=== PATIENT | male | born 1985 | race Two or more races ===

== ENCOUNTER 2023-05-21 11:45 | Inpatient (IN) ==
--- NOTE | 2023-05-21 12:04 | DR.SOBA ---
HPI Time Seen Time Seen by Provider: 05/21/23 12:16 Primary Care Physician Primary Care Physician: [id number] Complaints Chief Complaint Doctors Comments: 37 y/o male presents for evaluation. Started with cough, congestion and fever 3 days ago. Symptoms have worsened. Having a frequent cough, nonproductive. Feeling increasing shortness of breath. Having sinus congestion, fevers, chills. No report of vomiting or diarrhea. No other ill individuals at home. Patient is a history of diabetes, over the last year, has stopped his medications past several weeks. Chief Complaint:: Pt "having difficulty breathing and breathing fast" which started this am when he woke up. Had c/c/c, fever, headache on . Pt c/o pain in bilat rib area that started this AM when he started breathing fast Self Treatment fo Chief Complaint: tylenol/motrin at home; took advil sinus this AM around 0700 COVID-19 Coronavirus risk:travel/contact w/high risk person: No Has patient experienced Coronavirus symptoms: Yes Coronavirus symptoms experienced: Fever, Coughing and Shortness of Breath Source History Provided: Patient and Significant Other Mode of Arrival Mode of Arrival: Ambulatory Timing Onset of Chief Complaint: 05/18/23 PMH PMH Past Medical History: Yes Past Medical History: Diabetes Past Surgical History: No Surgical History: No History Social History Does patient currently use any type of tobacco product: Yes Have you used tobacco products in the last 12 months: Yes Type of Tobacco Use: Cigarettes Does any household member use tobacco: No Alcohol Use: Occasionally Do you use any recreational Drugs:: No Lives With: Spouse and Family Lives Where: Home Travel Risk Coronavirus risk:travel/contact w/high risk person: No Has patient experienced Coronavirus symptoms: Yes Coronavirus symptoms experienced: Fever, Coughing and Shortness of Breath Infectious screening In the last 2 months have you had wt loss of >10#?: NO Have you had fever, night sweats or hemotysis?: No Have you traveled outside the country in the last 6 months?: No (back from [place] September 2022) Isolation: Respiratory ROS Review of Systems Constitutional: Chills, Fever and Weakness Eyes: No Symptoms Reported ENTM: Nose Congestion Respiratoy: Non-Productive Cough and Short of Breath Cardiovascular: No Symptoms Reported Gastrointestinal/Abdominal: No Symptoms Reported Genitourinary: No Symptoms Reported Neurological: No Symptoms Reported Musculoskeletal: Muscle Pain Integumentary: No Symptoms Reported Hematologic/Lymphatic: No Symptoms Reported All Other Systems: Reviewed and Negative PE Vital Signs Vitals: Vital Signs Temperature 98.7 F Pulse Rate 113 Pulse Rate 128 Pulse Rate 124 Pulse Rate 128 Pulse Rate 127 Pulse Rate 124 Pulse Rate 123 Pulse Rate 131 Respiratory Rate 18 Respiratory Rate 28 Respiratory Rate 20 Respiratory Rate 43 Respiratory Rate 44 Respiratory Rate 35 Respiratory Rate 41 Respiratory Rate 36 Respiratory Rate 38 Respiratory Rate 29 Blood Pressure 132/74 Blood Pressure 155/95 Blood Pressure 161/90 Blood Pressure 158/85 Blood Pressure 154/82 Blood Pressure 164/93 Blood Pressure 178/94 Blood Pressure 145/89 O2 Sat by Pulse Oximetry 97 O2 Sat by Pulse Oximetry 98 O2 Sat by Pulse Oximetry 99 O2 Sat by Pulse Oximetry 99 O2 Sat by Pulse Oximetry 99 O2 Sat by Pulse Oximetry 100 O2 Sat by Pulse Oximetry 99 O2 Sat by Pulse Oximetry 97 General General Appearance: Alert and In No Apparent Distress Eyes Eye exam: PERRL and EOMI ENT ENT Exam: Normal Oropharynx, Mucous Membranes Moist and TM's Normal Bilaterally Neck Neck Exam: Normal Inspection and Full ROM; negative Tenderness Respiratory Respiratory Exam: Normal Lung Sounds Bilat; negative Accessory Muscle Use or Respiratory Distress Cardiovascular Cardiovascular Exam: Regular Rate, Normal Rhythm and Normal Heart Sounds Abdominal Exam Abdominal Exam: Soft; negative Tenderness Extremities Extremities Exam: Normal Inspection; negative Edema Neurologic Neurological Exam: Alert, Oriented X3 and CN II-XII Intact; negative Motor Sensory Deficit Skin Skin Exam: Warm and Dry COURSE Treatment Treatment: 37 y/o male ill x 3 days, with worsening URI symptoms. Pt given IV fluids, w/u initiated. Patient with history of diabetes, diagnosed < 5 years. Has been off diabetic medications for the past several months. Became ill with flulike illness, earlier this week. Now having increasing weakness, increasing shortness of breath, tachypnea. Glucose 383, serum bicarb down to 7.3. ABG obtained, pH 7.09, pCO2 10, bicarb 3, pO2 87. Serum acetone moderate level. Troponin normal. Patient positive for influenza B, negative for COVID. Patient with adult onset diabetes, should not be in DKA. Discussed with the admitting physician, Dr. Miller. Feels he probably has a combination of respiratory infection, metabolic acidosis. Chest x-ray shows a density of the right lower lobe, possible air bronchograms.. Will treat for pneumonia with IV Rocephin now. Blood cultures, lactic acid obtained. Possible sepsis. Initial BP was 145/89, with elevated heart rate in the 130's, no fever. After 2 L NS, & 1 amp bicarb in 250 mls NS, HR down to 113, maintains good BP of 132/74. Will admit to Dr Miller, covering for admissions. ROR Labs Reviewed Laboratory Results Reviewed?: Yes 05/21/23 12:33 05/21/23 12:33 Laboratory: WBC 8.2 X10^3/uL (3.6-10.0) 05/21/23 12:33 RBC 5.10 X10^6/uL (4.7-6.0) 05/21/23 12:33 Hgb 16.4 g/dL (13.5-18.0) 05/21/23 12:33 Hct 48.1 % (42.0-54.0) 05/21/23 12:33 MCV 94.3 fL (80.0-100.0) 05/21/23 12:33 MCH 32.2 pg (27.0-34.0) 05/21/23 12:33 MCHC 34.1 g/dL (33.0-35.0) 05/21/23 12:33 RDW 12.6 % (11.6-16.5) 05/21/23 12:33 Plt Count 166 X10^3/uL (150.0-450.0) 05/21/23 12:33 MPV 9.2 fL (7.4-11.0) 05/21/23 12:33 Neut % (Auto) 79.7 % (42.0-75.0) H 05/21/23 12:33 Lymph % (Auto) 9.0 % (21.0-51.0) L 05/21/23 12:33 [place] % (Auto) 11.1 % (0.0-13.0) 05/21/23 12:33 Eos % (Auto) 0.0 % (0.9-2.9) L 05/21/23 12:33 Baso % (Auto) 0.2 % (0.2-1.0) 05/21/23 12:33 Neut # (Auto) 6.6 x10^3/uL (2.2-4.8) H 05/21/23 12:33 Lymph # (Auto) 0.7 X10^3/uL (1.3-2.9) L 05/21/23 12:33 [place] # (Auto) 0.9 x10^3/uL (0.3-0.8) H 05/21/23 12:33 Eos # (Auto) 0.0 x10^3/uL (0.0-0.2) 05/21/23 12:33 Baso # (Auto) 0.0 X10^3/uL (0.0-0.1) 05/21/23 12:33 Absolute Nucleated RBC 0.1 /100WBC 05/21/23 12:33 Sample Site Rrad 05/21/23 13:28 ABG pH 7.090 (7.35-7.45) L* 05/21/23 13:28 ABG pCO2 10.0 mmHg (35.0-45.0) L* 05/21/23 13:28 ABG pO2 87.0 mmHg (80.0-100.0) 05/21/23 13:28 ABG HCO3 3.0 mmol/L (22-26) L* 05/21/23 13:28 ABG O2 Saturation 92.0 % (90-100) 05/21/23 13:28 ABG Base Excess -24.5 mmol/L (-2.0-2.0) L 05/21/23 13:28 Stephan Test Pos 05/21/23 13:28 A-a Gradient 50.0 mmHg 05/21/23 13:28 FiO2 21.0 05/21/23 13:28 Blood Gas Comments Pt chris well. eb/kg 05/21/23 13:28 Sodium 126 mmol/L (136-145) L 05/21/23 12:33 Corrected Sodium 133 mmol/L (136-145) L 05/21/23 12:33 Potassium 3.8 mmol/L (3.5-5.1) 05/21/23 12:33 Chloride 91 mmol/L (98-107) L 05/21/23 12:33 Carbon Dioxide 7.3 mmol/L (21-32) L* 05/21/23 12:33 BUN 10 mg/dL (7-18) 05/21/23 12:33 Creatinine 1.31 mg/dL (0.70-1.30) H 05/21/23 12:33 Est GFR (MDRD) Af Amer > 60 (>60) 05/21/23 12:33 Est GFR (MDRD) Non-Af > 60 (>60) 05/21/23 12:33 Glucose 383 mg/dL (65-99) H 05/21/23 12:33 Lactic Acid 0.4 mmol/L (0.4-2.0) 05/21/23 15:49 Calcium 8.4 mg/dL (8.5-10.1) L 05/21/23 12:33 Corrected Calcium TNP 05/21/23 12:33 Total Bilirubin 0.60 mg/dL (0.2-1.0) 05/21/23 12:33 AST 24 Units/L (15-37) 05/21/23 12:33 ALT 16 Units/L (12-78) 05/21/23 12:33 Alkaline Phosphatase 174 Units/L (46-116) H 05/21/23 12:33 Troponin I High Sens 8.3 ng/L (4.0-60.0) 05/21/23 12:33 Total Protein 8.6 g/dL (6.4-8.2) H 05/21/23 12:33 Albumin 3.9 g/dL (3.4-5.0) 05/21/23 12:33 Globulin 4.7 g/dL (2.5-4.5) H 05/21/23 12:33 Albumin/Globulin Ratio 0.8 Ratio (1.1-2.1) L 05/21/23 12:33 Specimen Type Clean catch urine 05/21/23 14:50 Urine Color Pale yellow (YELLOW) 05/21/23 14:50 Urine Appearance Clear (CLEAR) 05/21/23 14:50 Urine pH 5.0 (5.0 - 8.0) 05/21/23 14:50 Ur Specific [place] 1.025 (1.000-1.030) 05/21/23 14:50 Urine Protein 3+ (NEGATIVE) 05/21/23 14:50 Urine Glucose (UA) 4+ (NEGATIVE) 05/21/23 14:50 Urine Ketones 4+ (NEGATIVE) 05/21/23 14:50 Urine Blood 2+ (NEGATIVE) 05/21/23 14:50 Urine Nitrite Negative (NEGATIVE) 05/21/23 14:50 Urine Bilirubin Negative (NEGATIVE) 05/21/23 14:50 Urine Urobilinogen Normal (NORMAL) 05/21/23 14:50 Ur Leukocyte Esterase Negative (NEGATIVE) 05/21/23 14:50 Urine RBC 0-2 /HPF (0-3) 05/21/23 14:50 Urine WBC 0-2 /HPF (0-5) 05/21/23 14:50 Ur Squamous Epith Cells Negative /HPF (NEGATIVE) 05/21/23 14:50 Amorphous Sediment Trace /HPF (NEGATIVE) 05/21/23 14:50 Urine Bacteria Negative /HPF (NEGATIVE) 05/21/23 14:50 Granular Casts Moderate /LPF (NEGATIVE) 05/21/23 14:50 Ur Culture Indicated? No/not indicated 05/21/23 14:50 Acetone, Semi-Quant Moderate (NEGATIVE) H 05/21/23 12:33 Influenza Type A Ag Negative-presumptive (NEGATIVE) 05/21/23 12:23 Influenza Type B Ag Positive-presumptive (NEGATIVE) A 05/21/23 12:23 SARS CoV-2 RNA Rapid MATT Negative (NEGATIVE) 05/21/23 12:23 see notes under Course XRAY XRAY Interpreted by: Self X-ray Results: + increased markins/consolidation of RLL Opioid Opioid Risk Tool Age (Lior box if 16-45): No History of Preadolescent Sexual Abuse: No Total: 0 Total Score Risk Category: Low Risk Copyright: Rich HAMM predicting aberrant behaviors Discharge Plan Diagnosis Discharge Problem: Type B influenza, Pneumonia, Poorly controlled diabetes mellitus Discharge Plan Patient Disposition: 09 ADMITTED INPATIENT Condition: Stable Orders to Discharge Patient Discharge Orders: Transfer (Routine); Ordered 05/21/23 Ordered By: Jaxson Bustos
[2023-05-21] MEDS ORDERED: NS 1,000 ML IV 1,000 ML ONE ×2 (12:24→14:45)
[2023-05-21] MEDS: NS 1,000 ML IV 1,000 ML IV ONE ×3 (12:42→18:18)
[2023-05-21 12:43] LABS: BASOPHILS % (AUTO) 0.2 % (0.2-1.0); HEMATOCRIT 48.1 % (42.0-54.0); HEMOGLOBIN 16.4 g/dL (13.5-18.0); LYMPHOCYTES # (AUTO) 0.7 X10^3/uL (1.3-2.9); MEAN CORPUSCULAR HEMOGLOBIN 32.2 pg (27.0-34.0); MEAN CORPUSCULAR HGB CONC 34.1 g/dL (33.0-35.0); MEAN CORPUSCULAR VOLUME 94.3 fL (80.0-100.0); MEAN PLATELET VOLUME 9.2 fL (7.4-11.0); MONOCYTES # (AUTO) 0.9 x10^3/uL (0.3-0.8); MONOCYTES % (AUTO) 11.1 % (0.0-13.0); NEUTROPHILS # (AUTO) 6.6 x10^3/uL (2.2-4.8); NEUTROPHILS % (AUTO) 79.7 % (42.0-75.0); PLATELET COUNT 166 X10^3/uL (150.0-450.0); RED CELL DISTRIBUTION WIDTH 12.6 % (11.6-16.5); WHITE BLOOD COUNT 8.2 X10^3/uL (3.6-10.0)
[2023-05-21 12:58] LABS: ALANINE AMINOTRANSFERASE 16 Units/L (12-78); ALBUMIN 3.9 g/dL (3.4-5.0); ALKALINE PHOSPHATASE 174 Units/L (46-116); ASPARTATE AMINO TRANSFERASE 24 Units/L (15-37); BLOOD UREA NITROGEN 10 mg/dL (7-18); CALCIUM 8.4 mg/dL (8.5-10.1); CHLORIDE 91 mmol/L (98-107); CREATININE 1.31 mg/dL (0.70-1.30); GLUCOSE 383 mg/dL (65-99); POTASSIUM 3.8 mmol/L (3.5-5.1); TOTAL PROTEIN 8.6 g/dL (6.4-8.2); eGFR NON BLACK RACES > 60 (>60)
[2023-05-21 12:59] LABS: COR NA(FOR HYPERGLY) 133 mmol/L (136-145)
[2023-05-21 13:00] LABS: SODIUM 126 mmol/L (136-145)
[2023-05-21 13:03] LABS: CARBON DIOXIDE 7.3 mmol/L (21-32)
[2023-05-21 13:14] LABS: SERUM ACETONE MODERATE (NEGATIVE)
[2023-05-21] MEDS ORDERED: NovoLIN R (or HumuLIN R) ONE ×2 (13:19→13:26)
[2023-05-21] MEDS: NovoLIN R (or HumuLIN R) IV ONE (13:26)
[2023-05-21 13:33] LABS: ABG BASE EXCESS -24.5 mmol/L (-2.0-2.0)
[2023-05-21 13:35] LABS: ABG ALLEN TEST POS
[2023-05-21] MEDS ORDERED: SODIUM BICARBONATE 8.4% INJ ADULT ONE (13:41)
[2023-05-21] MEDS ORDERED: NS 250 ML IV 250 ML IV ONE (13:41)
[2023-05-21] MEDS: SODIUM BICARBONATE 8.4% INJ ADULT 50 ML in NS 250 ML IV 250 ML IV ONE (13:48)
[2023-05-21] MEDS ORDERED: TORADOL 30 MG VIAL ONE (14:45)
[2023-05-21] MEDS: TORADOL 30 MG VIAL IVP ONE (14:50)
[2023-05-21 15:01] LABS: BILIRUBIN,URINE NEGATIVE (NEGATIVE); BLOOD/HEMOGLOBIN,URINE 2+ (NEGATIVE); GLUCOSE, URINE 4+ (NEGATIVE); KETONES,URINE 4+ (NEGATIVE); LEUKOCYTE ESTERASE ,URINE NEGATIVE (NEGATIVE); NITRITES,URINE NEGATIVE (NEGATIVE); PROTEIN,URINE 3+ (NEGATIVE); UROBILINOGEN,URINE NORMAL (NORMAL)
[2023-05-21 15:02] LABS: APPEARANCE,URINE CLEAR (CLEAR); COLOR,URINE PALE YELLOW (YELLOW)
[2023-05-21 15:29] LABS: BACTERIA,URINE NEGATIVE /HPF (NEGATIVE); RBC,URINE 0-2 /HPF (0-3); SQUAMOUS EPITHELIAL CELL,UR NEGATIVE /HPF (NEGATIVE)
[2023-05-21 15:30] LABS: GRANULAR CASTS,URINE MODERATE /LPF (NEGATIVE)
[2023-05-21] MEDS ORDERED: ROCEPHIN VIAL 1 GRAM ONE (15:42)
[2023-05-21] MEDS: ROCEPHIN VIAL 1 GRAM IVP SCH (15:54)
--- NOTE | 2023-05-21 16:43 | RAD ---
EXAM:CHEST, 1 VIEWHISTORY:Shortness of Breath; Pt states he also has pain in bilat ribsCOMPARISON:None.TECHNIQUE:Upright chest single view performedFINDINGS:Limited inspiration. Subsegmental airspace opacities within the medial lung bases. Normal heart size. No mediastinal widening observed. Pleural spaces are clear. No radiographic evidence of free air or pneumothorax. No acute osseous abnormalities of the chest are identified.IMPRESSION:Limited inspiration with subsegmental bibasilar airspace opacities corresponding to atelectasis or pneumonia in the appropriate setting. Routine radiographic follow-up recommended. Two views are preferred.THIS IS AN ELECTRONICALLY VERIFIED FINAL REPORT05/21/2023 4:29 PM - Electronically signed by Karel Jeffrey MD
[2023-05-21 17:03] LABS: ABG BASE EXCESS -21.7 mmol/L (-2.0-2.0)
[2023-05-21 17:04] LABS: ABG ALLEN TEST POS; ABG HCO3 4.6 mmol/L (22-26)
[2023-05-21] MEDS ORDERED: TYLENOL 325 MG TAB PO ONE (17:14)
[2023-05-21] MEDS: ZOSYN VIAL 3.375 GRAMS 3.375 G in NS 100 ML IV 100 ML IV SCH (17:31)
[2023-05-21] MEDS: TYLENOL 325 MG TAB PO PRN (17:32)
[2023-05-21] MEDS: NovoLIN R (or HumuLIN R) SC PRN (17:44)
[2023-05-21 18:27] VITALS: BMI 29.2
[2023-05-21] MEDS: NS 1,000 ML IV 1,000 ML IV SCH (18:29)
[2023-05-21] MEDS: CONSULT PHARMACY - POTASSIUM & MAGNESIUM XX SCH (19:31)
[2023-05-21] MEDS: PHARMACY CONSULT - VANCOMYCIN XX SCH (19:31)
[2023-05-21] MEDS: SOLU-Cortef INJ IVP SCH ×2 (19:59→20:47)
[2023-05-21] MEDS: SNACK - Diabetic Appropriate PO SCH (20:03)
[2023-05-21] MEDS: MOTRIN TAB 600 MG PO ONE (20:10)
[2023-05-21] MEDS: VANCOMYCIN IV *PREMIX 1 G/200 ML BAG 1 G/200 ML PIGGYBACK IV SCH (20:48)
[2023-05-21] MEDS: THIAMINE HCL INJ IVP SCH (20:48)
[2023-05-22 01:04] LABS: ABG BASE EXCESS -19.2 mmol/L (-2.0-2.0)
[2023-05-22 01:06] LABS: ABG ALLEN TEST POS; ABG HCO3 6.9 mmol/L (22-26)
[2023-05-22] MEDS ORDERED: NS 100 ML IV 100 ML ONE (04:40)
[2023-05-22 05:31] LABS: BASOPHILS % (AUTO) 0.1 % (0.2-1.0); HEMATOCRIT 41.5 % (42.0-54.0); LYMPHOCYTES # (AUTO) 0.6 X10^3/uL (1.3-2.9); LYMPHOCYTES % (AUTO) 8.9 % (21.0-51.0); MEAN CORPUSCULAR HEMOGLOBIN 31.9 pg (27.0-34.0); MEAN CORPUSCULAR HGB CONC 34.5 g/dL (33.0-35.0); MEAN CORPUSCULAR VOLUME 92.4 fL (80.0-100.0); MEAN PLATELET VOLUME 9.1 fL (7.4-11.0); MONOCYTES # (AUTO) 0.4 x10^3/uL (0.3-0.8); MONOCYTES % (AUTO) 6.5 % (0.0-13.0); NEUTROPHILS # (AUTO) 5.6 x10^3/uL (2.2-4.8); NEUTROPHILS % (AUTO) 84.5 % (42.0-75.0); PLATELET COUNT 147 X10^3/uL (150.0-450.0); RED BLOOD COUNT 4.48 X10^6/uL (4.7-6.0); RED CELL DISTRIBUTION WIDTH 13.2 % (11.6-16.5); WHITE BLOOD COUNT 6.6 X10^3/uL (3.6-10.0)
[2023-05-22 05:35] LABS: HEMOGLOBIN 14.3 g/dL (13.5-18.0)
[2023-05-22 05:37] LABS: ALANINE AMINOTRANSFERASE 14 Units/L (12-78); ALBUMIN 2.7 g/dL (3.4-5.0); ALKALINE PHOSPHATASE 108 Units/L (46-116); ASPARTATE AMINO TRANSFERASE 18 Units/L (15-37); BLOOD UREA NITROGEN 9 mg/dL (7-18); CALCIUM 8.1 mg/dL (8.5-10.1); CHLORIDE 102 mmol/L (98-107); COR CA(FOR HYPOALB) 9.1 mg/dL (8.5-10.1); COR NA(FOR HYPERGLY) 134 mmol/L (136-145); CREATININE 0.94 mg/dL (0.70-1.30); GLUCOSE 230 mg/dL (65-99); POTASSIUM 3.2 mmol/L (3.5-5.1); SODIUM 131 mmol/L (136-145); TOTAL PROTEIN 6.6 g/dL (6.4-8.2); eGFR NON BLACK RACES > 60 (>60)
[2023-05-22 05:49] LABS: CARBON DIOXIDE 10.6 mmol/L (21-32)
[2023-05-22] MEDS ORDERED: CONSULT PHARMACY - POTASSIUM & MAGNESIUM XX SCH (07:00)
[2023-05-22 08:44] LABS: ABG BASE EXCESS -18.9 mmol/L (-2.0-2.0)
[2023-05-22 08:45] LABS: ABG ALLEN TEST POS; ABG HCO3 6.5 mmol/L (22-26)
[2023-05-22] MEDS: VANCOMYCIN IV *PREMIX 1 G/200 ML BAG 1 G/200 ML PIGGYBACK IV SCH (09:59)
[2023-05-22] MEDS: MAGNESIUM SULFATE 1 GRAM/100 mL PREMIX 1 G/100 ML BAG IV SCH (09:59)
[2023-05-22] MEDS: K-DUR TAB 20 MEQ PO SCH (10:00)
--- NOTE | 2023-05-22 14:28 | RAD ---
EXAM:CHEST, 1 VIEWHISTORY:FLU, PNEUMONIA, SOB; dmCOMPARISON:Prior study or studies were utilized for comparison during interpretation with the most relevant dated yesterdayTECHNIQUE:CHEST, 1 VIEWFINDINGS:Chest:Lines and tubes: Cardiac leads overlie the chest.Mediastinum: Cardiac and mediastinal shadow is within normal limits for size and contour.Pulmonary vessels: No pulmonary vascular congestion.Lung baron: No suspicious airspace opacity.Pleura: No effusion. No pneumothorax.Bones and soft tissues: No acute osseous or soft tissue abnormality.IMPRESSION:1. No acute cardiopulmonary abnormalityTHIS IS AN ELECTRONICALLY VERIFIED FINAL REPORT05/22/2023 2:25 PM - Electronically signed by Jose Carlos Ballesteros MD
[2023-05-22] MEDS: MAG-OX TAB PO SCH (14:47)
[2023-05-22 17:11] LABS: ABG BASE EXCESS -20.5 mmol/L (-2.0-2.0)
[2023-05-22 17:12] LABS: ABG HCO3 5.3 mmol/L (22-26)
[2023-05-22] MEDS: SODIUM BICARBONATE 8.4% INJ ADULT IVP ONE ×2 (18:07→20:57)
[2023-05-22] MEDS: NS 50 ML IV 50 ML IV ONE (18:07)
[2023-05-22] MEDS: PHARMACY COMMENT IV ONE (20:58)
[2023-05-22] MEDS: TYLENOL 500 MG TAB EXTRA STRENGTH PO PRN (21:30)
[2023-05-22] MEDS: NORCO 5/325 MG TAB PO PRN (22:32)
[2023-05-23 05:31] LABS: BASOPHILS % (AUTO) 0.2 % (0.2-1.0); EOSINOPHILS % (AUTO) 0.1 % (0.9-2.9); HEMATOCRIT 41.5 % (42.0-54.0); HEMOGLOBIN 14.3 g/dL (13.5-18.0); LYMPHOCYTES # (AUTO) 0.9 X10^3/uL (1.3-2.9); LYMPHOCYTES % (AUTO) 12.5 % (21.0-51.0); MEAN CORPUSCULAR HGB CONC 34.5 g/dL (33.0-35.0); MEAN CORPUSCULAR VOLUME 92.7 fL (80.0-100.0); MEAN PLATELET VOLUME 9.5 fL (7.4-11.0); MONOCYTES # (AUTO) 0.6 x10^3/uL (0.3-0.8); MONOCYTES % (AUTO) 8.1 % (0.0-13.0); NEUTROPHILS # (AUTO) 5.8 x10^3/uL (2.2-4.8); NEUTROPHILS % (AUTO) 79.1 % (42.0-75.0); PLATELET COUNT 185 X10^3/uL (150.0-450.0); RED BLOOD COUNT 4.48 X10^6/uL (4.7-6.0); RED CELL DISTRIBUTION WIDTH 13.7 % (11.6-16.5); WHITE BLOOD COUNT 7.4 X10^3/uL (3.6-10.0)
[2023-05-23 05:46] LABS: ALANINE AMINOTRANSFERASE 15 Units/L (12-78); ALBUMIN 2.7 g/dL (3.4-5.0); ALKALINE PHOSPHATASE 116 Units/L (46-116); ASPARTATE AMINO TRANSFERASE 16 Units/L (15-37); BLOOD UREA NITROGEN 16 mg/dL (7-18); CALCIUM 8.1 mg/dL (8.5-10.1); CHLORIDE 100 mmol/L (98-107); COR CA(FOR HYPOALB) 9.1 mg/dL (8.5-10.1); COR NA(FOR HYPERGLY) 136 mmol/L (136-145); CREATININE 0.99 mg/dL (0.70-1.30); GLUCOSE 237 mg/dL (65-99); MAGNESIUM 2.2 mg/dL (2.0-2.9); SODIUM 133 mmol/L (136-145); TOTAL PROTEIN 6.9 g/dL (6.4-8.2); eGFR NON BLACK RACES > 60 (>60)
[2023-05-23 05:50] LABS: CARBON DIOXIDE 13.7 mmol/L (21-32); POTASSIUM 2.6 mmol/L (3.5-5.1)
[2023-05-23 06:27] LABS: ABG BASE EXCESS -14.9 mmol/L (-2.0-2.0)
[2023-05-23 06:29] LABS: ABG ALLEN TEST POS; ABG HCO3 8.8 mmol/L (22-26)
[2023-05-23] MEDS ORDERED: CONSULT PHARMACY - POTASSIUM & MAGNESIUM XX SCH (07:00)
--- NOTE | 2023-05-23 07:35 | RAD ---
EXAM:CHEST, 1 VIEWHISTORY:SOB, PNEUMONIA ; DMCOMPARISON:05/22/2023.TECHNIQUE:AP view of the chestFINDINGS:The cardiac and mediastinal contours are normal in size. Similar-appearing patchy bibasilar opacities. No definite pleural effusion or pneumothorax.IMPRESSION:Patchy medial bibasilar opacities concerning for pneumonia given the indication. Recommend follow-up imaging to document resolution after appropriate treatment.THIS IS AN ELECTRONICALLY VERIFIED FINAL REPORT05/23/2023 7:31 AM - Electronically signed by Eliseo Cordova MD
[2023-05-23] MEDS: K-DUR TAB 20 MEQ PO SCH ×2 (08:26→20:19)
[2023-05-23] MEDS ORDERED: NovoLIN N or HumuLIN N SC ONE (09:21)
[2023-05-23] MEDS: ACTOS PO SCH (10:19)
[2023-05-23] MEDS: GLUCOPHAGE XR 24-HR PO SCH (10:20)
[2023-05-23] MEDS: VANCOMYCIN IV *PREMIX 1.25 G/250 ML BAG 1.25 G/250 ML PIGGYBACK IV SCH (14:26)
[2023-05-23] MEDS ORDERED: SNACK - Diabetic Appropriate PO SCH (20:00)
[2023-05-24 05:32] LABS: BASOPHILS % (AUTO) 0.6 % (0.2-1.0); EOSINOPHILS % (AUTO) 0.2 % (0.9-2.9); LYMPHOCYTES # (AUTO) 1.1 X10^3/uL (1.3-2.9); LYMPHOCYTES % (AUTO) 16.5 % (21.0-51.0); MEAN CORPUSCULAR HEMOGLOBIN 32.1 pg (27.0-34.0); MEAN CORPUSCULAR VOLUME 91.6 fL (80.0-100.0); MEAN PLATELET VOLUME 9.4 fL (7.4-11.0); MONOCYTES # (AUTO) 0.9 x10^3/uL (0.3-0.8); MONOCYTES % (AUTO) 13.1 % (0.0-13.0); NEUTROPHILS # (AUTO) 4.6 x10^3/uL (2.2-4.8); NEUTROPHILS % (AUTO) 69.6 % (42.0-75.0); PLATELET COUNT 172 X10^3/uL (150.0-450.0); RED CELL DISTRIBUTION WIDTH 13.2 % (11.6-16.5); WHITE BLOOD COUNT 6.7 X10^3/uL (3.6-10.0)
[2023-05-24 05:44] LABS: ALANINE AMINOTRANSFERASE 13 Units/L (12-78); ALBUMIN 2.1 g/dL (3.4-5.0); ALKALINE PHOSPHATASE 93 Units/L (46-116); ASPARTATE AMINO TRANSFERASE 14 Units/L (15-37); BLOOD UREA NITROGEN 10 mg/dL (7-18); CALCIUM 7.5 mg/dL (8.5-10.1); CHLORIDE 99 mmol/L (98-107); COR NA(FOR HYPERGLY) 135 mmol/L (136-145); CREATININE 0.72 mg/dL (0.70-1.30); GLUCOSE 235 mg/dL (65-99); SODIUM 132 mmol/L (136-145); TOTAL PROTEIN 5.7 g/dL (6.4-8.2); eGFR NON BLACK RACES > 60 (>60)
[2023-05-24 05:51] LABS: POTASSIUM 2.7 mmol/L (3.5-5.1)
[2023-05-24 05:52] LABS: HEMOGLOBIN 11.5 g/dL (13.5-18.0)
[2023-05-24] MEDS ORDERED: CONSULT PHARMACY - POTASSIUM & MAGNESIUM XX SCH ×2 (07:00)
[2023-05-24] MEDS: POTASSIUM CHLORIDE LIQ PO SCH (09:58)
[2023-05-24] MEDS: MAGNESIUM SULFATE 1 GRAM/100 mL PREMIX 1 G/100 ML BAG IV SCH (09:59)
[2023-05-24] MEDS: NS + KCL 20 MEQ/L 1,000 ML IV SCH (09:59)
[2023-05-24] MEDS ORDERED: MAG-OX TAB PO SCH (10:00)
[2023-05-24] MEDS ORDERED: K-DUR TAB 20 MEQ PO SCH (10:00)
[2023-05-24] MEDS: POTASSIUM CHLORIDE LIQ ONE (10:56)
[2023-05-24] MEDS: PHARMACY COMMENT IV NR (13:30)
[2023-05-24] MEDS ORDERED: POTASSIUM CHLORIDE LIQ ONE (15:01)
[2023-05-24 15:04] LABS: CREATININE 0.71 mg/dL (0.70-1.30); VANCOMYCIN,TROUGH 11.9 ug/mL (15-20)
[2023-05-24] MEDS ORDERED: MAGNESIUM SULFATE 1 GRAM/100 mL PREMIX 1 G/100 ML BAG IV ONE (15:21)
[2023-05-24 19:10] LABS: BLOOD UREA NITROGEN 6 mg/dL (7-18); CALCIUM 7.5 mg/dL (8.5-10.1); CARBON DIOXIDE 17.1 mmol/L (21-32); CHLORIDE 100 mmol/L (98-107); COR NA(FOR HYPERGLY) 134 mmol/L (136-145); CREATININE 0.74 mg/dL (0.70-1.30); GLUCOSE 215 mg/dL (65-99); SODIUM 131 mmol/L (136-145); eGFR NON BLACK RACES > 60 (>60)
[2023-05-24 23:19] LABS: BLOOD UREA NITROGEN 6 mg/dL (7-18); CALCIUM 7.6 mg/dL (8.5-10.1); CARBON DIOXIDE 16.2 mmol/L (21-32); CREATININE 0.68 mg/dL (0.70-1.30); GLUCOSE 200 mg/dL (65-99); eGFR NON BLACK RACES > 60 (>60)
[2023-05-24 23:28] LABS: CHLORIDE 98 mmol/L (98-107); COR NA(FOR HYPERGLY) 133 mmol/L (136-145); SODIUM 131 mmol/L (136-145)
[2023-05-24 23:29] LABS: POTASSIUM 2.9 mmol/L (3.5-5.1)
[2023-05-25 03:35] LABS: BASOPHILS # (AUTO) 0.1 X10^3/uL (0.0-0.1); EOSINOPHILS % (AUTO) 0.7 % (0.9-2.9); HEMATOCRIT 33.2 % (42.0-54.0); HEMOGLOBIN 11.5 g/dL (13.5-18.0); LYMPHOCYTES # (AUTO) 1.2 X10^3/uL (1.3-2.9); LYMPHOCYTES % (AUTO) 18.9 % (21.0-51.0); MEAN CORPUSCULAR HEMOGLOBIN 31.9 pg (27.0-34.0); MEAN CORPUSCULAR HGB CONC 34.7 g/dL (33.0-35.0); MEAN CORPUSCULAR VOLUME 91.9 fL (80.0-100.0); MEAN PLATELET VOLUME 8.6 fL (7.4-11.0); MONOCYTES # (AUTO) 0.9 x10^3/uL (0.3-0.8); MONOCYTES % (AUTO) 13.2 % (0.0-13.0); NEUTROPHILS # (AUTO) 4.3 x10^3/uL (2.2-4.8); NEUTROPHILS % (AUTO) 66.2 % (42.0-75.0); PLATELET COUNT 226 X10^3/uL (150.0-450.0); RED BLOOD COUNT 3.62 X10^6/uL (4.7-6.0); WHITE BLOOD COUNT 6.5 X10^3/uL (3.6-10.0)
[2023-05-25 03:49] LABS: POTASSIUM 2.9 mmol/L (3.5-5.1); SODIUM 134 mmol/L (136-145)
[2023-05-25 03:50] LABS: ALANINE AMINOTRANSFERASE 12 Units/L (12-78); ALBUMIN 2.1 g/dL (3.4-5.0); ALKALINE PHOSPHATASE 93 Units/L (46-116); ASPARTATE AMINO TRANSFERASE 11 Units/L (15-37); BLOOD UREA NITROGEN 5 mg/dL (7-18); CALCIUM 7.6 mg/dL (8.5-10.1); CARBON DIOXIDE 18.4 mmol/L (21-32); CHLORIDE 101 mmol/L (98-107); COR CA(FOR HYPOALB) 9.1 mg/dL (8.5-10.1); COR NA(FOR HYPERGLY) 137 mmol/L (136-145); CREATININE 0.64 mg/dL (0.70-1.30); GLUCOSE 214 mg/dL (65-99); eGFR NON BLACK RACES > 60 (>60)
[2023-05-25 07:08] LABS: BLOOD UREA NITROGEN 4 mg/dL (7-18); CALCIUM 7.7 mg/dL (8.5-10.1); CARBON DIOXIDE 15.3 mmol/L (21-32); CHLORIDE 98 mmol/L (98-107); COR NA(FOR HYPERGLY) 132 mmol/L (136-145); CREATININE 0.59 mg/dL (0.70-1.30); GLUCOSE 208 mg/dL (65-99); SODIUM 129 mmol/L (136-145); eGFR NON BLACK RACES > 60 (>60)
[2023-05-25] MEDS: NS + KCL 40 MEQ/L 1,000 ML with MAGNESIUM SULFATE 50% INJ VIAL 2 G IV ONE (07:10)
[2023-05-25 07:19] LABS: POTASSIUM 2.7 mmol/L (3.5-5.1)
[2023-05-25] MEDS: LEVAQUIN TAB 500 MG PO SCH (10:00)
[2023-05-25 11:30] LABS: BLOOD UREA NITROGEN 5 mg/dL (7-18); CALCIUM 7.8 mg/dL (8.5-10.1); CARBON DIOXIDE 16.8 mmol/L (21-32); CHLORIDE 97 mmol/L (98-107); COR NA(FOR HYPERGLY) 131 mmol/L (136-145); GLUCOSE 191 mg/dL (65-99); SODIUM 129 mmol/L (136-145); eGFR NON BLACK RACES > 60 (>60)
[2023-05-25 11:32] LABS: POTASSIUM 2.9 mmol/L (3.5-5.1)
[2023-05-25] MEDS: MAGNESIUM SULFATE 1 GRAM/100 mL PREMIX 1 G/100 ML BAG IV SCH (11:55)
[2023-05-25] MEDS: POTASSIUM CHLORIDE IV ONE (11:57)
[2023-05-25] MEDS: [UNRECOGNIZED DRUG - OTHER] IV ONE (11:57)
[2023-05-25] MEDS: NS + KCL 20 MEQ/L 1,000 ML IV SCH (20:52)
[2023-05-25 23:52] LABS: BLOOD UREA NITROGEN 6 mg/dL (7-18); CARBON DIOXIDE 19.5 mmol/L (21-32); CHLORIDE 97 mmol/L (98-107); COR NA(FOR HYPERGLY) 129 mmol/L (136-145); CREATININE 0.55 mg/dL (0.70-1.30); GLUCOSE 179 mg/dL (65-99); SODIUM 127 mmol/L (136-145); eGFR NON BLACK RACES > 60 (>60)
[2023-05-26 05:27] LABS: BASOPHILS % (AUTO) 0.4 % (0.2-1.0); EOSINOPHILS # (AUTO) 0.1 x10^3/uL (0.0-0.2); EOSINOPHILS % (AUTO) 1.6 % (0.9-2.9); HEMATOCRIT 34.3 % (42.0-54.0); LYMPHOCYTES # (AUTO) 1.1 X10^3/uL (1.3-2.9); LYMPHOCYTES % (AUTO) 14.9 % (21.0-51.0); MEAN CORPUSCULAR HEMOGLOBIN 31.9 pg (27.0-34.0); MEAN CORPUSCULAR VOLUME 91.3 fL (80.0-100.0); MEAN PLATELET VOLUME 8.3 fL (7.4-11.0); MONOCYTES # (AUTO) 1.1 x10^3/uL (0.3-0.8); MONOCYTES % (AUTO) 16.2 % (0.0-13.0); NEUTROPHILS # (AUTO) 4.7 x10^3/uL (2.2-4.8); NEUTROPHILS % (AUTO) 66.9 % (42.0-75.0); PLATELET COUNT 349 X10^3/uL (150.0-450.0); RED BLOOD COUNT 3.75 X10^6/uL (4.7-6.0); RED CELL DISTRIBUTION WIDTH 12.9 % (11.6-16.5); WHITE BLOOD COUNT 7.1 X10^3/uL (3.6-10.0)
[2023-05-26 05:40] LABS: ALANINE AMINOTRANSFERASE 11 Units/L (12-78); ALBUMIN 2.1 g/dL (3.4-5.0); ALKALINE PHOSPHATASE 92 Units/L (46-116); ASPARTATE AMINO TRANSFERASE 11 Units/L (15-37); BLOOD UREA NITROGEN 7 mg/dL (7-18); CALCIUM 8.1 mg/dL (8.5-10.1); CARBON DIOXIDE 16.3 mmol/L (21-32); CHLORIDE 98 mmol/L (98-107); COR CA(FOR HYPOALB) 9.6 mg/dL (8.5-10.1); COR NA(FOR HYPERGLY) 132 mmol/L (136-145); CREATININE 0.52 mg/dL (0.70-1.30); GLUCOSE 194 mg/dL (65-99); MAGNESIUM 1.8 mg/dL (2.0-2.9); SODIUM 130 mmol/L (136-145); TOTAL PROTEIN 6.6 g/dL (6.4-8.2); eGFR NON BLACK RACES > 60 (>60)
[2023-05-26] MEDS: POTASSIUM CHLORIDE LIQ PO SCH (06:06)
[2023-05-26] MEDS ORDERED: CONSULT PHARMACY - POTASSIUM & MAGNESIUM XX SCH (07:00)
[2023-05-26 07:53] VITALS: TEMP 98.1
[2023-05-26 08:09] VITALS: PULSE 96
[2023-05-26] MEDS: POTASSIUM CHLORIDE IV ONE (08:10)
[2023-05-26] MEDS: NS IV ONE (08:10)
[2023-05-26] MEDS: [UNRECOGNIZED DRUG - OTHER] IV ONE (08:10)
[2023-05-26] MEDS: NS 1,000 ML IV 1,000 ML IV ONE (08:28)
[2023-05-26] MEDS ORDERED: MAG-OX TAB PO SCH (10:00)
[2023-05-26] MEDS ORDERED: K-DUR TAB 20 MEQ PO SCH (10:00)
[2023-05-26 11:31] VITALS: BP 104/70; RESP 26; O2SAT 95
== END 2023-05-26 12:10 | disposition home or self-care (01) | DRG 194 ==
LOC: ER 11:45 → MED/SURG 16:14 → ICU 19:08
PROVIDERS: ADMIT Obstetrics & Gynecology Obstetrics; ATTEND Obstetrics & Gynecology Obstetrics
DX: R06.02 Shortness of breath; E87.6 Hypokalemia; J18.8 Other pneumonia, unspecified organism; E83.42 Hypomagnesemia; R00.0 Tachycardia, unspecified; E87.21 Acute metabolic acidosis; Z20.822 Contact with and (suspected) exposure to COVID-19; J10.1 Influenza due to other identified influenza virus with other respiratory manifestations; E11.65 Type 2 diabetes mellitus with hyperglycemia